=== PATIENT | female | born 1995 | race Two or more races ===

== ENCOUNTER 2021-12-08 11:39 | Outpatient (CLI) | payer OTHER ==
[2021-12-09] MEDS ORDERED: KEPPRA750 MG PO (12:24)
== END 2021-12-08 12:19 | disposition home or self-care (01) ==
LOC: PRENATAL 11:39
PROVIDERS: ATTEND Obstetrics & Gynecology Maternal & Fetal Medicine
DX: O36.80X0 Pregnancy with inconclusive fetal viability, not applicable or unspecified (principal); O26.859 Spotting complicating pregnancy, unspecified trimester; O99.891 Other specified diseases and conditions complicating pregnancy; Z3A.01 Less than 8 weeks gestation of pregnancy

== ENCOUNTER 2021-12-10 08:15 | Day surgery (SDC) | payer OTHER ==
[~2021-12-10 08:15] MED LIST: KEPPRA750 MG PO
== END 2021-12-10 16:20 | disposition home or self-care (01) ==
LOC: CIR.AMB 08:15 → OB/GYN 11:29 → CIR.AMB 14:20 → EDSTATUS 14:20 → CIR.AMB 16:20
PROVIDERS: ATTEND Specialist
DX: O02.1 Missed abortion (principal); E66.9 Obesity, unspecified; E16.2 Hypoglycemia, unspecified; M41.80 Other forms of scoliosis, site unspecified

== ENCOUNTER 2022-10-17 12:26 | Outpatient (CLI) | payer OTHER | END 2022-10-17 13:15 | disposition home or self-care (01) | LOC: PRENATAL 12:26 | PROVIDERS: ATTEND Obstetrics & Gynecology Maternal & Fetal Medicine | DX: O36.80X0 Pregnancy with inconclusive fetal viability, not applicable or unspecified (principal); Z3A.14 14 weeks gestation of pregnancy ==

== ENCOUNTER 2022-11-22 08:26 | Outpatient (CLI) | payer OTHER | END 2022-11-22 10:45 | disposition home or self-care (01) | LOC: PRENATAL 08:26 | PROVIDERS: ATTEND Obstetrics & Gynecology Maternal & Fetal Medicine | DX: O35.9XX0 Maternal care for (suspected) fetal abnormality and damage, unspecified, not applicable or unspecified (principal); O35.3XX0 Maternal care for (suspected) damage to fetus from viral disease in mother, not applicable or unspecified; O09.299 Supervision of pregnancy with other poor reproductive or obstetric history, unspecified trimester; Z3A.20 20 weeks gestation of pregnancy ==

== ENCOUNTER 2023-01-17 09:35 | Outpatient (CLI) | payer OTHER | END 2023-01-17 10:45 | disposition home or self-care (01) | LOC: PRENATAL 09:35 | PROVIDERS: ATTEND Obstetrics & Gynecology Maternal & Fetal Medicine | DX: O26.849 Uterine size-date discrepancy, unspecified trimester (principal); Z3A.28 28 weeks gestation of pregnancy ==

== ENCOUNTER 2023-02-28 11:03 | Outpatient (CLI) | payer OTHER | END 2023-02-28 13:15 | disposition home or self-care (01) | LOC: PRENATAL 11:03 | PROVIDERS: ATTEND Obstetrics & Gynecology Maternal & Fetal Medicine | DX: O26.849 Uterine size-date discrepancy, unspecified trimester (principal); O36.8199 Decreased fetal movements, unspecified trimester, other fetus; Z3A.34 34 weeks gestation of pregnancy ==

== ENCOUNTER 2023-03-23 13:45 | Inpatient (IN) | payer OTHER ==
[~2023-03-23] VITALS: Ht 160 cm; Wt 92.5 kg
[2023-03-29] MEDS ORDERED: KEPPRA XR750 MG PO (22:31)
[2023-03-29] MEDS ORDERED: PRENATAL TABLE1 EAC1 PO (22:31)
== END 2023-04-01 12:39 | disposition home or self-care (01) | DRG 798 ==
LOC: OB/GYN 03-30 00:19 → LDR 03-30 00:19 → OB/GYN 03-30 10:30 → SURG 04-11 13:45
PROVIDERS: ADMIT Specialist; ATTEND Specialist
PROC: 10E0XZZ Delivery of Products of Conception, External Approach (ICD-10-PCS; principal; 2023-03-30)
PROC: 4A1HXCZ Monitoring of Products of Conception, Cardiac Rate, External Approach (ICD-10-PCS; 2023-03-30)
PROC: 0UB70ZZ Excision of Bilateral Fallopian Tubes, Open Approach (ICD-10-PCS; 2023-03-31)
DX: O99.354 Diseases of the nervous system complicating childbirth (principal); Z37.0 Single live birth; G40.909 Epilepsy, unspecified, not intractable, without status epilepticus; Z30.2 Encounter for sterilization; Z3A.38 38 weeks gestation of pregnancy; Z20.822 Contact with and (suspected) exposure to COVID-19